=== PATIENT | female | born 1970 | race Caucasian/White ===

== ENCOUNTER 2016-03-14 18:10 | Observation (INO) | payer OTHER ==
[~2016-03-14] VITALS: Ht 157.5 cm; Wt 65.4 kg
[2016-03-14] MEDS ORDERED: ACETAMIN/BUTALB/CAFF PO PRN (20:05)
[2016-03-14] MEDS: [UNRECOGNIZED DRUG - REMARK] XX SCH (20:07)
[2016-03-14] MEDS ORDERED: MAXALT 10 MG PO PRN (20:10)
[2016-03-14 20:37] VITALS: BP_SYST 106; BP_SYST 107; RESP 18; TEMP 98.1
[2016-03-14 20:39] VITALS: Ht 157.5 cm; Wt 65.4 kg
[2016-03-14] MEDS: DILAUDID 1 MG/ML AMP IV PRN (20:56)
[2016-03-14] MEDS: FLUOXETINE 20 MG CAP PO SCH (21:00)
[2016-03-14] MEDS ORDERED: ZOLPIDEM 5 MG TAB PO SCH (21:00)
[2016-03-14] MEDS: TOPIRAMATE 100 MG TAB PO SCH (21:19)
[2016-03-14] MEDS: LEVETIRACETAM 250 MG TAB PO SCH (21:19)
[2016-03-14 22:33] VITALS: BP_SYST 102; RESP 18; TEMP 97.8
[2016-03-15] MEDS: DILAUDID 1 MG/ML AMP IV PRN ×3 (01:06→12:08)
[2016-03-15 04:52] VITALS: BP_SYST 92; RESP 18; TEMP 97.7
[2016-03-15 07:29] VITALS: BP_SYST 96; RESP 18; TEMP 97.5
[2016-03-15] MEDS: [UNRECOGNIZED DRUG - REMARK] XX SCH (08:00)
[2016-03-15] MEDS: LEVETIRACETAM 250 MG TAB PO SCH (08:45)
[2016-03-15] MEDS: TOPIRAMATE 100 MG TAB PO SCH (08:45)
[2016-03-15] MEDS: FLUOXETINE 20 MG CAP PO SCH (08:45)
[2016-03-15 10:50] VITALS: BP_SYST 95; RESP 18; TEMP 97
[2016-03-15 15:03] VITALS: BP_SYST 98; RESP 18; TEMP 97.7
[2016-03-15 15:26] VITALS: BP_SYST 98; RESP 18; TEMP 97.7
== END 2016-03-15 15:16 | disposition home or self-care (01) ==
LOC: ENRESERVDT → ENRESERVTM → ENPENDDIS 19:13 → 4NT 19:13
PROVIDERS: ADMIT Specialist; ATTEND Specialist
DX: G43.919 Migraine, unspecified, intractable, without status migrainosus (principal); F41.1 Generalized anxiety disorder; F32.9 Major depressive disorder, single episode, unspecified
CPT/HCPCS: 80053; 85025; G0378; J1170